=== PATIENT | male | born 1980 | race African-American/Black ===

== ENCOUNTER 2022-01-31 19:16 | Emergency (ER) | payer OTHER ==
[2022-01-31 20:00] VITALS: BP 128/93
[2022-01-31 20:16] VITALS: BP 55/24
[2022-01-31 20:21] VITALS: BP 50/34
[2022-01-31 21:17] VITALS: BP 146/119
[2022-01-31] MEDS ORDERED: VOLTAREN75 MG PO (21:26)
[2022-01-31] MEDS ORDERED: TRAMADOL HCL50 MG PO (21:26)
[2022-01-31] MEDS ORDERED: ORPHENADRINE100 MG PO (21:26)
[2022-01-31 21:30] VITALS: BP 130/78
== END 2022-01-31 21:41 | disposition home or self-care (01) | DRG 552 ==
LOC: ED 19:16
DX: S16.1XXA Strain of muscle, fascia and tendon at neck level, initial encounter (principal); S49.92XA Unspecified injury of left shoulder and upper arm, initial encounter; V89.2XXA Person injured in unspecified motor-vehicle accident, traffic, initial encounter; Y93.9 Activity, unspecified; Y99.0 Civilian activity done for income or pay